=== PATIENT | female | born 1990 | race Caucasian/White ===

== ENCOUNTER 2024-04-23 14:38 | Outpatient (AMB) | payer OTHER, SELFPAY ==
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
[2024-04-23 15:01] VITALS: BP 132/80; PULSE 101; TEMP 36.2; O2SAT 96; BMI 37.2
--- OUTSIDE RECORDS SUMMARY | 2024-04-23 17:38 | XMS_ITS | Encounter Summary ---
Author Organization [facility] Address [address] [place] [address] Phone Care Team Providers Care See Supervisor Name Role Phone Tristen Gong MD Primary Care Provider Unavaila ble Encounter Details Date Type Department Care Team (Late st Contact Info) Description 07/30/2009 Nurse Only [address] [id number] Social History Tobacco Use Types Packs/Day Years Used Date Smoking Tobacco: Never Assessed Comments Unknown Sex and Gender Information Value Date Recorded Sex Assigned at Not on file Legal Sex Female 4:05 PM EST Gender Identity Not on file Sexual Orientation Not on file documented as of this encounter Nursing Notes * UNKNOWN, HISTORICAL - 07/30/2009 11:20 AM EDT Ethel Abbasi 1990 NURSE NOTE/VERBAL ORDERS Office/Outpatient Visit Visit Date: Jul 30, 2009 11:20 am Provider: Cathy Valdovinos CMA (Community Services Manager: Rj Hamilton MD; Sheet Metal Pattern Cutter: Cathy Valdovinos CMA) Location: [facility]. ECTIVE: CC: Patient enters with her mother ECG HPI: Pt enters with mom for EKG. Pt recently stopped taking Lamictal for mood disorder. EKG recommended by Dr. Gong. See note 07/29/09. Allergies: Bee stings: hives, swelling See note: OBJECTIVE: Vitals: Current: 07/30/2009 11:23:15 AM Ht: 66.75 inches (84.58%); Wt: 201 lbs (97.84%); BMI: 31.72 (96.67%) BP: 110/60 mm Hg (left arm, sitting); P: 84 bpm ASSESSMENT: 314.01 ADHD (Mild) ORDERS: Radiology/Test Orders: Electrocardiogram, routine with at least 12 leads; with interpretation and report PLAN: ADHD EKG: Done today. Orders: Electrocardiogram, routine with at least 12 leads; with interpretation and report CHARGE CAPTURE: Primary Diagnosis: 314.01 ADHD Orders: [id number] Electrocardiogram, routine with at least 12 leads; with interpretation and report ADDENDUMS: Addendum: 08/05/2009 03:32 PM - Rj Hamilton noted documented in this encounter Plan of Treatment Not on file documented as of this encounter Visit Diagnoses Not on filedocumented in this encounter Care Teams See Supervisor Relationship Specialty Start Date End Date Tristen Gong MD PCP - General 04/10/16 documented as of this encounter
--- OUTSIDE RECORDS SUMMARY | 2024-04-23 17:38 | XMS_ITS | Encounter Summary ---
Author Organization [facility] Address [address] [facility] [address] [place] [phone] Phone Care Team Providers Care Construction Analyst Name Role Phone Unknown, Unknown Primary Care Provider Salvador chong Encounter Details Date Type Department Care Team (Late st Contact Info) Description 06/04/2023 Procedure [facility], Ct Scan - [address] [address] Social History Tobacco Use Types Packs/Day Years Used Date Smoking Tobacco: Never Smokeless Tobacco: Never Alcohol Use Standard Drinks/Week Comments Yes 0 (1 standard drink = 0.6 oz pur e alcohol) once every few months Education Answer Date Recorded Are you interested in more education? Not on dea e 06/16/2022 Are you concerned about learning? Not on file 06/16/2022 No 06/16/2022 No 06/16/2022 Digital Access Answer Date Recorded No 07/14/2022 No 07/14/2022 No 07/14/2022 Reliable internet access at home? Not on file 07/14/2022 Device with a working camera? Not on file Intimate Partner Violence Answer Date R ecorded Are you denied basic needs s uch as food, clothing, or medical care? No 06/04/2023 In the past 12 months have y ou been in a relationship with a person who hurts, threatens, or tries to control you? No 06/04/2023 Are you denied basic needs s uch as food, clothing, or medical care? No 06/04/2023 In the past 12 months have y ou been in a relationship with a person who hurts, threatens, or tries to control you? No 06/04/2023 Sex and Gender Information Value Date Recorded Sex Assigned at Female 04/15/2018 6:17 PM EST Gender Identity Female 04/15/2018 6:17 PM EST Sexual Orientation Choose not to disclose 2023 10:50 PM EDT Sexual Orientation Straight 06/04/2023 10 :50 PM EDT documented as of this encounter Plan of Treatment Not on file documented as of this encounter Visit Diagnoses Not on filedocumented in this encounter Care Teams Construction Analyst Relationship Specialty Start Date End Date Unknown, Unknown, PCP - General 04/15/18 documented as of this encounter Additional Source Comments The information contained in this document represents components of the legal health record. It is not the complete legal health record.[facility]
--- OUTSIDE RECORDS SUMMARY | 2024-04-23 17:38 | XMS_ITS | Clinical Summary ---
Author Organization [facility] Address [address] [id number] Phone Care Team Providers Care Documentation Analyst Name Role Phone Tristen Gong MD Primary Care Provider Unavaila ble Immunizations Immunization Administration Dates Next Due DTP 01/13/1993,1992,1992 DTaP 5 09/30/1997,12/29/1996 HPV, Quadrivalent 08/17/2006 Hep B, ped/adol 03/14/1993,1992,1992 Hib (HbOC) 09/19/1993, 3,1992,08/09 MMR 10/10/1993 Meningococcal Conj (Menactra) MCV4P 08/17/2006 OPV 09/30/1997, 7,1992,08/09 Td (adult) (MBL), 2 Lf tetan us toxoid, PF, adsorbed 05/29/2014,08/25/2003 Tdap 10/14/2008 Social History Tobacco Use Types Packs/Day Years Used Date Smoking Tobacco: Never Assessed Comments Unknown Sex and Gender Information Value Date Recorded Sex Assigned at Not on file Legal Sex Female 4:05 PM EST Gender Identity Not on file Sexual Orientation Not on file Last Filed Vital Signs Vital Sign Reading Time Taken Comments Blood Pressure - - Pulse - - Temperature 36.9 ??C (98.5 ??F) 05/29/2014 3:02 PM ED T Respiratory Rate - - Oxygen Saturation - - Inhaled Oxygen Concentration - - Weight 109 kg (240 lb) 05/29/2014 3:02 PM EDT Height - - Body Mass Index - - Plan of Treatment Health Maintenance Due Date Last Done Comments Varicella Vaccines (1 of 2 - 13+ 2-dose series) 2005 HPV Vaccines (2 - 2-dose series) 02/16/2007 08/17/2006 Influenza Vaccines (#1) 2023 COVID-19 Vaccine ( - 2023- season) 2023 DTaP,Tdap,and Td Vaccines (8 - Td or Tdap) 05/29/2024 05/29/2014, 10/14/2008, 08/25/2003, Additional history exists Hepatitis B Vaccines Completed 03/14/1993, 1992, 1992 HIB Vaccines Completed 09/19/1993, 02/1992, 1992, Additional history exists MMR Vaccines Completed 10/10/1993 IPV Vaccines Completed 09/30/1997, 12/20, 1992, Additional history exists Meningococcal Vaccine Aged Out 08/17/2006 No yodit enoch eligible based on patient's age to complete this topic Hepatitis A Vaccines Aged Out No long er eligible based on patient's age to complete this topic Men B Vaccine Aged Out No longer elig ible based on patient's age to complete this topic Pneumococcal Vaccine Aged Out No long er eligible based on patient's age to complete this topic Care Teams Documentation Analyst Relationship Specialty Start Date End Date Tristen Gong MD PCP - General 04/10/16
--- OUTSIDE RECORDS SUMMARY | 2024-04-23 17:38 | XMS_ITS | Clinical Summary ---
Author Organization [facility] Address [address] [place] [address] [place] [phone] Phone Care Team Providers Care Derrick Boat Captain Name Role Phone Unknown, Unknown Primary Care Provider Salvador lable Allergies Active Allergy Reactions Criticality Noted Date Comments Gluten Protein GI Upset Medium 06/04/2023 Leon Throat Tightness Medium 06/04/2023 Medications No known medications Immunizations Name Administration Dates Next Due Rabies Fibroblast Culture 07/27/2020,07/24/2020, 07/21/2020 Rabies Immune Globulin 07/21/2020,07/21/2020 Social History Tobacco Use Types Packs/Day Years [...] Orientation Straight 06/04/2023 10 :50 PM EDT Last Filed Vital Signs Vital Sign Reading Time Taken Comments Blood Pressure 133/85 06/05/2023 3:45 AM EDT Pulse 90 06/05/2023 3:45 AM EDT Temperature 36.7 ??C (98.1 ??F) 06/05/2023 3:45 AM ED T Respiratory Rate 16 06/05/2023 3:45 AM EDT Oxygen Saturation 96% 06/05/2023 3:45 AM EDT Inhaled Oxygen Concentration - - Weight 113.4 kg (250 lb) 06/04/2023 10:45 PM EDT Height 172.7 cm (5' 8 ) 06/04/2023 10:45 PM EDT Body Mass Index 38.01 06/04/2023 10:45 PM EDT Plan of Treatment Health Maintenance Due Date Last Done Comments DEPRESSION SCREENING 2004 HEPATITIS B SCREENING 2010 HEPATITIS C SCREENING 2010 HIV ONE-TIME SCREENING (18-6 5 YEARS) 2010 HEPATITIS B VACCINES (1 of 3 - 19+ 3-dose series) 06/07/2011 PAP SMEAR 2013 Adult Td,Tdap Booster 10/14/2018 10/14/2008 INFLUENZA VACCINE (#1) 2023 COVID-19 VACCINE ( - 2023-2 5 season) 2023 SMOKING STATUS SCREENING (On ce After 26 Yrs) Completed 07/24/2020 HEPATITIS A VACCINES Aged Out No long er eligible based on patient's age to complete this topic HIB VACCINES Aged Out No longer eligi ble based on patient's age to complete this topic MENINGOCOCCAL VACCINES (ACWY) Aged Out No longer eligible based on patient's age to complete this topic PNEUMOCOCCAL VACCINES (0-49 years) Aged Out No longer eligible based on patient's age to complete this topic Medical Devices Not on file Care Teams Derrick Boat Captain Relationship Specialty Start Date End Date Unknown, Unknown, PCP - General 04/15/18 Additional Source Comments The information contained in this document represents components of the legal health record. It is not the complete legal health record.[facility]
== END 2024-04-23 15:21 | disposition home or self-care (01) ==
LOC: HO.HMCSH 14:38
PROVIDERS: PCP Internal Medicine; Visit Provider Internal Medicine
DX: S02.2XXA Fracture of nasal bones, initial encounter for closed fracture (principal); V86.92XA Unspecified occupant of snowmobile injured in nontraffic accident, initial encounter

== ENCOUNTER → 2024-04-23 14:38 | Outpatient (BNVA) | payer OTHER, SELFPAY | PROVIDERS: PCP Internal Medicine; Visit Provider Internal Medicine | DX: S02.2XXD Fracture of nasal bones, subsequent encounter for fracture with routine healing (principal); S42.001D Fracture of unspecified part of right clavicle, subsequent encounter for fracture with routine healing; V86.92XD Unspecified occupant of snowmobile injured in nontraffic accident, subsequent encounter | CPT/HCPCS: 99202 ==

== ENCOUNTER 2024-04-29 13:36 | Outpatient (AMB) | payer OTHER, SELFPAY ==
[2024-04-29 13:45] VITALS: BP 136/82; PULSE 102; TEMP 36.8; O2SAT 99; BMI 36.9
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
--- OUTSIDE RECORDS SUMMARY | 2024-04-29 16:31 | XMS_ITS | Clinical Summary ---
Author Organization [facility] Address [address] [id number] Phone Care Team Providers Care Surgery Teacher Name Role Phone Tristen Gong MD Primary [...] age to complete this topic Care Teams Surgery Teacher Relationship Specialty Start Date End Date Tristen Gong MD PCP - General 04/10/16
--- OUTSIDE RECORDS SUMMARY | 2024-04-29 16:31 | XMS_ITS | Clinical Summary ---
Author Organization [facility] Address [address] [place] [address] [place] [phone] Phone Care Team Providers Care Record Producer Name Role Phone Unknown, Unknown Primary Care Provider Savlador lable Allergies Active Allergy Reactions Criticality Noted Date Comments Gluten Protein GI Upset Medium 06/04/2023 [place] Throat Tightness Medium 06/04/2023 Medications No known [...] Last Done Comments DEPRESSION SCREENING 2004 HEPATITIS C SCREENING 2010 HIV ONE-TIME SCREENING (18-6 5 YEARS) 2010 PAP SMEAR 2013 Adult Td,Tdap Booster 10/14/2018 10/14/2008 INFLUENZA VACCINE (#1) 2023 COVID-19 VACCINE (2023-2 5 season) 2023 SMOKING STATUS SCREENING (On [...] this topic Medical Devices Not on file [facility] [place] Deny Abbasi, Ethel Personal/Family Self [address] [place] [address] [place] Den[place] Abbasi, Ethel Personal/Family Self [address] [place] [address] [place] Deny Balle, Ethel Personal/Family Self [address] [place] [address] Deny Abbasi, Ethel Personal/Family Self [address] [place] [address] Deny Abbasi, Ethel Personal/Family Self [address] [place] [address] Deny Care Teams Record Producer Relationship Specialty Start Date End Date Unknown, Unknown, PCP - General 04/15/18 Additional Source Comments The information contained in this document represents components of the legal health record. It is not the complete legal health record.[facility]
--- OUTSIDE RECORDS SUMMARY | 2024-04-29 16:31 | XMS_ITS | Encounter Summary ---
Author Organization [facility] Address [address] [place] [phone] Phone Care Team Providers Care Residential Subcontractor Name Role Phone Unknown, Unknown Primary Care Provider Salvador chong Encounter Details Date Type Department Care Team (Late st Contact Info) Description 06/04/2023 Procedure Pass [facility], Ct Scan - [address] [address] Social History Tobacco Use Types Packs/Day Years [...] on filedocumented in this encounter Care Teams Residential Subcontractor Relationship Specialty Start Date End Date Unknown, Unknown, PCP - General 04/15/18 documented as of this encounter Additional Source Comments The information contained in this document represents components of the legal health record. It is not the complete legal health record.[facility]
--- OUTSIDE RECORDS SUMMARY | 2024-04-29 16:31 | XMS_ITS | Encounter Summary ---
Author Organization [facility] Address [address] [place] [address] Phone Care Team Providers Care It Security Consultant Name Role Phone Tristen Gong MD Primary Care Provider Unavaila ble Encounter Details Date Type Department Care Team (Late st Contact Info) Description 07/30/2009 Nurse Only [address] [address] Social History Tobacco Use Types Packs/Day Years [...] 2009 11:20 am Provider: Cathy Valdovinos CMA (Microwave Remote Sensing Scientist: Rj Hamilton MD; Powder Monkey: Cathy Valdovinos CMA) Location: [facility]. ECTIVE: CC: Patient enters with [...] CHARGE CAPTURE: Primary Diagnosis: 314.01 ADHD Orders: [id number] Electrocardiogram, routine with at least 12 leads; with interpretation and report ADDENDUMS: Addendum: 08/05/2009 03:32 PM - Rj Hamilton noted documented in this encounter Plan of Treatment Not on file documented as of this encounter Visit Diagnoses Not on filedocumented in this encounter Care Teams It Security Consultant Relationship Specialty Start Date End Date Tristen Gong MD PCP - General 04/10/16 documented as of this encounter
== END 2024-04-29 14:53 | disposition home or self-care (01) ==
LOC: HO.HMCSH 13:36
PROVIDERS: PCP Internal Medicine; Visit Provider Physician Assistant Medical
DX: S02.2XXA Fracture of nasal bones, initial encounter for closed fracture (principal); S02.30XA Fracture of orbital floor, unspecified side, initial encounter for closed fracture; V86.92XA Unspecified occupant of snowmobile injured in nontraffic accident, initial encounter; S42.009A Fracture of unspecified part of unspecified clavicle, initial encounter for closed fracture; S01.81XA Laceration without foreign body of other part of head, initial encounter; S06.0XAA Concussion with loss of consciousness status unknown, initial encounter; S80.12XA Contusion of left lower leg, initial encounter; S81.012A Laceration without foreign body, left knee, initial encounter; Z48.02 Encounter for removal of sutures

== ENCOUNTER → 2024-04-29 13:36 | Outpatient (BNVA) | payer OTHER, SELFPAY | PROVIDERS: PCP Internal Medicine; Visit Provider Physician Assistant Medical | DX: Z48.02 Encounter for removal of sutures (principal); S01.81XD Laceration without foreign body of other part of head, subsequent encounter; S02.2XXD Fracture of nasal bones, subsequent encounter for fracture with routine healing; S06.0XAD Concussion with loss of consciousness status unknown, subsequent encounter; S42.001D Fracture of unspecified part of right clavicle, subsequent encounter for fracture with routine healing; S02.30XD Fracture of orbital floor, unspecified side, subsequent encounter for fracture with routine healing; S80.12XD Contusion of left lower leg, subsequent encounter; S81.012D Laceration without foreign body, left knee, subsequent encounter; V86.92XD Unspecified occupant of snowmobile injured in nontraffic accident, subsequent encounter | CPT/HCPCS: 96127; 99212 ==

== ENCOUNTER 2024-06-03 10:02 | Outpatient (AMB) | payer OTHER, SELFPAY ==
[2024-06-03 10:03] VITALS: BP 128/70; PULSE 100; RESP 14; TEMP 36.6; O2SAT 97; BMI 35.9
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
--- OUTSIDE RECORDS SUMMARY | 2024-06-03 11:40 | XMS_ITS | Clinical Summary ---
Author Organization [facility] Address [address] [place] [address] [place] [id number] Phone Care Team Providers Care Activity Assistant Name Role Phone Unknown, Unknown Primary Care Provider Salvador lable Allergies Active Allergy Reactions Criticality Noted Date Comments Gluten Protein GI Upset Medium 06/04/2023 [place] Throat Tightness Medium 06/04/2023 Medications No known [...] this topic Medical Devices Not on file [place] Deny Abbasi, Ethel Personal/Family Self [address] [place] [address] [place] Deny Balle, Ethel Personal/Family Self [address] [place] [address] Deny Abbasi, Ethel Personal/Family Self [address] [place] [address] Deny Abbasi, Ethel Personal/Family Self [address] [place] [address] Deny Care Teams Activity Assistant Relationship Specialty Start Date End Date Unknown, Unknown, PCP - General 04/15/18 Additional Source Comments The information contained in this document represents components of the legal health record. It is not the complete legal health record.[facility]
--- OUTSIDE RECORDS SUMMARY | 2024-06-03 11:40 | XMS_ITS | Clinical Summary ---
Author Organization [facility] Address [address] [id number] Phone Care Team Providers Care Dress Cutter Name Role Phone Tristen Gong MD Primary [...] age to complete this topic Care Teams Dress Cutter Relationship Specialty Start Date End Date Tristen Gong MD PCP - General 04/10/16
--- OUTSIDE RECORDS SUMMARY | 2024-06-03 11:40 | XMS_ITS | Encounter Summary ---
Author Organization [facility] Address [address] [facility] [address] [place] [phone] Phone Care Team Providers Care Carpenter Inspector Name Role Phone Unknown, Unknown Primary Care Provider Salvador chong Encounter Details Date Type Department Care Team (Late st Contact Info) Description 06/04/2023 Procedure Pass [facility], Ct Scan - [address] [address] Social History Tobacco Use Types Packs/Day Years [...] on filedocumented in this encounter Care Teams Carpenter Inspector Relationship Specialty Start Date End Date Unknown, Unknown, PCP - General 04/15/18 documented as of this encounter Additional Source Comments The information contained in this document represents components of the legal health record. It is not the complete legal health record.[facility]
--- OUTSIDE RECORDS SUMMARY | 2024-06-03 11:40 | XMS_ITS | Encounter Summary ---
Author Organization [facility] Address [address] [place] [address] Phone Care Team Providers Care Veterinary Manager Name Role Phone Tristen Gong MD Primary Care Provider Unavaila ble Encounter Details Date Type Department Care Team (Late st Contact Info) Description 07/30/2009 Nurse Only [address] [address] Social History Tobacco Use Types Packs/Day Years [...] 2009 11:20 am Provider: Cathy Valdovinos CMA (Collections Specialist: Rj Hamilton MD; Central Sterile Tech: Cathy Valdovinos CMA) Location: [facility]. ECTIVE: CC: Patient enters with her mother [...] CHARGE CAPTURE: Primary Diagnosis: 314.01 ADHD Orders: [id number] Electrocardiogram, routine with at least 12 leads; with interpretation and report ADDENDUMS: Addendum: 08/05/2009 03:32 PM - Rj Hamilton noted documented in this encounter Plan of Treatment Not on file documented as of this encounter Visit Diagnoses Not on filedocumented in this encounter Care Teams Veterinary Manager Relationship Specialty Start Date End Date Tristen Gong MD PCP - General 04/10/16 documented as of this encounter
== END 2024-06-03 10:23 | disposition home or self-care (01) ==
LOC: HO.HMCSH 10:02
PROVIDERS: PCP Internal Medicine; Visit Provider Internal Medicine
DX: F41.1 Generalized anxiety disorder (principal); S06.0XAA Concussion with loss of consciousness status unknown, initial encounter

== ENCOUNTER → 2024-06-03 10:02 | Outpatient (BNVA) | payer OTHER, SELFPAY | PROVIDERS: PCP Internal Medicine; Visit Provider Internal Medicine | DX: F41.1 Generalized anxiety disorder (principal); S06.0XAA Concussion with loss of consciousness status unknown, initial encounter; X58.XXXA Exposure to other specified factors, initial encounter; Y93.29 Activity, other involving ice and snow; Y92.9 Unspecified place or not applicable; Y99.9 Unspecified external cause status | CPT/HCPCS: 96127; 99212 ==